=== PATIENT | male | born 1955 | race Two or more races ===

== ENCOUNTER 2021-05-21 03:17 | Inpatient (IN) | payer OTHER ==
[~2021-05-21] VITALS: Ht 170.2 cm; Wt 79.1 kg
[2021-05-21] MEDS ORDERED: MORPHINE SULFATE 4 MG/ML, 1ML IVPush ONE ×2 (03:30→04:00)
[2021-05-21] MEDS ORDERED: ONDANSETRON 2MG/ML, 2ML IVPush ONE (03:30)
[2021-05-21] MEDS ORDERED: MORPHINE SULFATE 4 MG/ML, 1ML ONE ×2 (03:32→04:00)
[2021-05-21] MEDS ORDERED: ONDANSETRON 2MG/ML, 2ML ONE ×3 (03:32→06:20)
[2021-05-21 03:37] LABS: BASOPHILS % (AUTO) 1 % (0-1); EOSINOPHILS % (AUTO) 4 % (1-7); LYMPHOCYTES % (AUTO) 23 % (22-44); MEAN CORPUSCULAR HEMOGLOBIN 29.8 pg (27.5-34.5); MEAN CORPUSCULAR HGB CONC 33.8 g/dL (33.2-36.2); MEAN PLATELET VOLUME 7.6 fL (7.4-10.4); MONOCYTES % (AUTO) 8 % (2-9); NEUTROPHILS % (AUTO) 64 % (42-75); PLATELET COUNT 190 x10^3/uL (130-400); RED BLOOD COUNT 4.82 x10^6/uL (4.38-5.82); RED CELL DISTRIBUTION WIDTH 16.1 % (9.4-14.8)
--- NOTE | 2021-05-21 03:37 | NUR ---
Pt brought in by EMS from [place], out of town visiting for acute onset mid sternal 10/10 chest pain that woke pt up out of his sleep. Sharp, stabbing, w/ some associated sob. 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 Pt took 3 SL NTG prior to EMS arrival w/ no relief. EMS gave 324 ASA and estbalished 18G RForearm IV. 12 lead EKG w/ EMS unremarkable for acute STEMI.
[2021-05-21 03:48] LABS: ALBUMIN 3.2 g/dL (3.4-5.0); ANION GAP 6 mmol/L (5-15); CALCIUM 8.8 mg/dL (8.5-10.1); CHLORIDE 101 mmol/L (98-107); CREATININE 1.16 mg/dL (0.7-1.3)
[2021-05-21 03:51] LABS: TROPONIN I < 0.015 ng/mL (0.000-0.045)
[2021-05-21] MEDS ORDERED: PLEASE ENTER ALLERGIES MC SCH (04:00)
[2021-05-21] MEDS ORDERED: MAALOX/HYOSCYAMINE/LIDOCAINE 45 ML BTL ONE (04:13)
[2021-05-21] MEDS ORDERED: MAALOX/HYOSCYAMINE/LIDOCAINE 45 ML BTL PO ONE (04:30)
--- NOTE | 2021-05-21 04:56 | NUR ---
Pt resting at this time. Awaiting IP orders and bed assignment. Pt asleep, on continous compliance monitor. Vitals stable. remains at bedside. Pt appears to be in no acute distress.
[2021-05-21] MEDS ORDERED: MORPHINE SULFATE 4 MG/ML, 1ML IVPush PRN (05:00)
[2021-05-21] MEDS: ONDANSETRON 2MG/ML, 2ML IVPush PRN ×2 (05:06→06:25)
--- NOTE | 2021-05-21 05:06 | NUR ---
Pt c/o severe nausea. Pt sat up in bed, given 4mg Zofran for nausea. Pt c/o 8/10 chest pain. Updated ANDREA Mueller. Hold further pain meds at this time until Hospitalist evaluates pt.
[2021-05-21] MEDS ORDERED: SODIUM CHLORIDE 0.9% 1,000 ML IV SCH ×2 (06:00→14:00)
[2021-05-21] MEDS ORDERED: NITROGLYCERIN OINT 2%, 1GM TP ONE ×2 (06:19→06:30)
--- NOTE | 2021-05-21 06:25 | NUR ---
Entered room to find pt having sats in 70's, hypotensive w/ SBP <90 stating he was feeling more weak and nauseous. Updated MD Maldonado face to face. Repeat EKG obtained, 1L NSS bolus at this time. pt BP responded quite well quickly w/ fluids and repositioning. Pt endorsing increased weakness, severe chest pain 9/10 described as heaviness. Pt feeling nauseous. Given additional 4mg IV Zofran and Nitropaste for pain. Another IV established. 20G Lhand. Tolerated well. O2 increased to 4Lpm via NC. Pt tolerated interventions well. Pt sinus willem on montiror, HR between 49-58. Call pearson within reach. remains at bedside.
[2021-05-21] MEDS ORDERED: SODIUM CHLORIDE 0.9% 1,000ML IVBOLUS ONE (06:30)
--- NOTE | 2021-05-21 06:50 | NUR ---
Report to NILAM Miguel no further questions at this time.
--- NOTE | 2021-05-21 07:00 | NUR ---
HOSPITALIST IN SEEING PT
[2021-05-21 07:10] LABS: ALBUMIN 3.2 g/dL (3.4-5.0); BILIRUBIN, DIRECT 0.2 mg/dL (0.1-0.2); BILIRUBIN,INDIRECT 0.3 mg/dL (0.0-2.0); BILIRUBIN,TOTAL 0.5 mg/dL (0.2-1.0); LDL/HDL RATIO 0.8 (0.5-3.0); TOTAL PROTEIN 7.4 g/dL (6.4-8.2)
--- NOTE | 2021-05-21 07:20 | NUR ---
REPORT TO ALEXI DEMARCO
[2021-05-21] MEDS ORDERED: DOCUSATE 100 MG CAPSULE PO PRN (07:30)
[2021-05-21] MEDS ORDERED: ONDANSETRON 2MG/ML, 2ML IVPush PRN (07:30)
[2021-05-21] MEDS ORDERED: PANTOPRAZOLE 40MG TABLET PO SCH (07:30)
[2021-05-21] MEDS ORDERED: morphine SULFATE 10 MG/ML, 1ML IVPush PRN (07:30)
[2021-05-21] MEDS ORDERED: ACETAMINOPHEN 325 MG TABLET PO PRN (07:30)
[2021-05-21] MEDS ORDERED: hydrALAzine 20 MG/ML, 1ML IVPush PRN (07:30)
[2021-05-21] MEDS ORDERED: MELATONIN 5 MG TABLET PO PRN (07:30)
[2021-05-21] MEDS ORDERED: METH-640 PO (07:38)
[2021-05-21] MEDS ORDERED: PANT40TA6 PO (07:38)
[2021-05-21] MEDS ORDERED: ASPI-963 PO (07:38)
[2021-05-21] MEDS ORDERED: ROPI0.254 PO (07:38)
[2021-05-21] MEDS ORDERED: ROSU40TA PO (07:38)
[2021-05-21] MEDS ORDERED: LOSA100T14 PO (07:38)
[2021-05-21] MEDS ORDERED: ACET650S21 PO (07:38)
[2021-05-21] MEDS ORDERED: BUPR75TA6 PO (07:38)
[2021-05-21] MEDS ORDERED: AMLO-150 PO (07:38)
[2021-05-21] MEDS ORDERED: METO25TA35 PO (07:38)
[2021-05-21] MEDS ORDERED: ISOS30TA8 PO (07:38)
[2021-05-21 07:52] LABS: TROPONIN I < 0.015 ng/mL (0.000-0.045)
[2021-05-21] MEDS ORDERED: HEPARIN 5,000 UNITS/ML, 1ML IV ONE (08:00)
[2021-05-21] MEDS ORDERED: HEPARIN 25,000 UNITS/250ML PMX 250 ML IV PRN (08:00)
[2021-05-21] MEDS ORDERED: HEPARIN 5,000 UNITS/ML, 1ML IV PRN (08:00)
[2021-05-21] MEDS: SODIUM CHLORIDE 0.9% 1,000 ML IV SCH ×2 (09:31→10:02)
[2021-05-21 09:37] VITALS: BP 113/67
[2021-05-21] MEDS ORDERED: ASPIRIN 81 MG TABLET EC PO SCH (10:00)
[2021-05-21] MEDS ORDERED: AMLODIPINE 10 MG TAB PO SCH (10:00)
[2021-05-21] MEDS ORDERED: METHOCARBAMOL 750 MG TABLET PO PRN (11:30)
[2021-05-21 12:03] VITALS: BP 113/61
[2021-05-21 12:50] LABS: TROPONIN I < 0.015 ng/mL (0.000-0.045)
[2021-05-21] MEDS ORDERED: VERAPAMIL 2.5 MG/ML, 2ML ONE (12:57)
[2021-05-21] MEDS ORDERED: TICAGRELOR 90 MG TABLET ONE (12:57)
[2021-05-21] MEDS ORDERED: MIDAZOLAM 1 MG/ML, 5ML ONE (12:57)
[2021-05-21] MEDS ORDERED: FENTANYL PF 100 MCG/2ML ONE (12:57)
[2021-05-21] MEDS ORDERED: BIVALIRUDIN 250 MG ONE (12:58)
[2021-05-21] MEDS ORDERED: HEPARIN 1,000 UNITS/ML, 10ML ONE (12:58)
[2021-05-21] MEDS ORDERED: LIDOCAINE-MPF 1%, 5ML ONE (12:58)
[2021-05-21] MEDS ORDERED: ATORVASTATIN 80 MG TABLET PO SCH (21:00)
[2021-05-22] MEDS ORDERED: BUPROPION 75 MG TABLET PO SCH (09:00)
[2021-05-22] MEDS ORDERED: ISOSORBIDE MONONITRATE ER 30 MG TABLET PO SCH (09:00)
[2021-05-22] MEDS ORDERED: ROPINIROLE 0.25MG TABLET PO SCH (09:00)
[2021-05-22] MEDS ORDERED: LOSARTAN 100 MG TAB PO SCH (10:00)
== END 2021-05-21 18:42 | disposition home or self-care (01) | DRG 287 ==
LOC: ED 03:30 → EDIP 04:36 → 5SO 07:48
PROVIDERS: ADMIT Student in an Organized Health Care Education/Training Program; ATTEND Student in an Organized Health Care Education/Training Program
PROC: 4A023N7 Measurement of Cardiac Sampling and Pressure, Left Heart, Percutaneous Approach (ICD-10-PCS; principal; 2021-05-21)
PROC: B2111ZZ Fluoroscopy of Multiple Coronary Arteries using Low Osmolar Contrast (ICD-10-PCS; 2021-05-21)
PROC: B2151ZZ Fluoroscopy of Left Heart using Low Osmolar Contrast (ICD-10-PCS; 2021-05-21)
DX: I25.110 Atherosclerotic heart disease of native coronary artery with unstable angina pectoris (principal); I50.20 Unspecified systolic (congestive) heart failure; E87.1 Hypo-osmolality and hyponatremia; I13.0 Hypertensive heart and chronic kidney disease with heart failure and stage 1 through stage 4 chronic kidney disease, or unspecified chronic kidney disease; I73.9 Peripheral vascular disease, unspecified; F43.10 Post-traumatic stress disorder, unspecified; F32.9 Major depressive disorder, single episode, unspecified; F17.210 Nicotine dependence, cigarettes, uncomplicated; N18.9 Chronic kidney disease, unspecified; J43.9 Emphysema, unspecified; E78.5 Hyperlipidemia, unspecified; R73.03 Prediabetes; I25.2 Old myocardial infarction; Z95.5 Presence of coronary angioplasty implant and graft; Z83.3 Family history of diabetes mellitus; Z79.82 Long term (current) use of aspirin; Z82.49 Family history of ischemic heart disease and other diseases of the circulatory system; Z85.46 Personal history of malignant neoplasm of prostate; Z88.8 Allergy status to other drugs, medicaments and biological substances
CPT/HCPCS: 36415; 71045; 80048; 80061; 80076; 82040; 83036; 83690; 84484; 85025; 85520; 93005; 93306; 93356; 93458; 96374; 96375; 99156; 99157; C1769; C1894; G0378; J0583; J1644; J2250; J2405; J3010; J2270; J7030; Q9967